=== PATIENT | male | born 1980 | race Two or more races ===

== ENCOUNTER 2020-05-22 18:11 | Emergency (ER) | payer OTHER ==
[~2020-05-22] VITALS: Ht 170.2 cm; Wt 99.8 kg
[2020-05-22] MEDS ORDERED: Methocarbamol 750mg tab ORAL ONE (18:45)
[2020-05-22 18:55] VITALS: BP 128/71
--- NOTE | 2020-05-22 19:11 | Diagnostic Imaging Report ---
EXAM: CT Lumbar Spine Without Intravenous Contrast CLINICAL HISTORY: TRAUMA TECHNIQUE: Axial computed tomography images of the lumbar spine without intravenous contrast. CTDI is 18.4 mGy and DLP is 645.8 mGy-cm. One or more of the following dose reduction techniques were used: automated exposure control, adjustment of the mA and/or kV according to patient size, use of iterative reconstruction technique. COMPARISON: No relevant prior studies available. FINDINGS: Vertebrae: No fracture or malalignment. Vertebral body heights are preserved. Disc spaces are maintained. No spinal canal stenosis. Soft tissues: Unremarkable. IMPRESSION: No fracture or malalignment.
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
[2020-05-22] MEDS ORDERED: IBUPROFEN600 M1 ORAL (19:19)
[2020-05-22] MEDS ORDERED: LIDODERM700 M1 TOPIC (19:19)
[2020-05-22] MEDS ORDERED: ROBAXIN-500MG ORAL (19:19)
[2020-05-22 19:30] VITALS: BP 127/75
== END 2020-05-22 19:30 | disposition home or self-care (01) ==
LOC: EMR 18:36
DX: S39.012A Strain of muscle, fascia and tendon of lower back, initial encounter (principal); V43.52XA Car driver injured in collision with other type car in traffic accident, initial encounter; Y92.410 Unspecified street and highway as the place of occurrence of the external cause; Z88.0 Allergy status to penicillin
CPT/HCPCS: 72131; Z7502; 99284